=== PATIENT | female | born 1995 | race Caucasian/White ===

== ENCOUNTER 2019-01-10 02:25 | Inpatient (IN) | payer MEDICAID ==
[~2019-01-10] VITALS: Ht 154.9 cm; Wt 73.9 kg
[2019-01-10] MEDS ORDERED: DEXT 5%/LR + PITOCIN 20UNITS/L 1,000 ML IV SCH ×2 (03:08→14:36)
[2019-01-10] MEDS ORDERED: NALOXONE HCL 0.4 MG/ML 1ML VIAL IM PRN (03:15)
[2019-01-10] MEDS ORDERED: LIDOCAINE HCL 1% 20ML VIAL (Pyxis) INJ INFIL SCH (03:15)
[2019-01-10] MEDS ORDERED: METHYLERGONOVINE MALEATE 0.2 MG/ML IM PRN (03:15)
[2019-01-10] MEDS ORDERED: CARBOPROST TROMETHAMINE 250 MCG/ML AMPUL IM PRN (03:15)
[2019-01-10] MEDS ORDERED: BUTORPHANOL TARTRATE 2 MG/ML VIAL IV PRN (03:15)
[2019-01-10 03:44] LABS: BASOPHILS % 0.3 % (0.0-2.0); EOSINOPHILS % 0.5 % (0.0-5.0); HEMATOCRIT. 35.5 % (36.0-48.0); HEMOGLOBIN. 11.8 g/dL (12.0-16.0); MEAN CORPUSCULAR HEMOGLOBIN 27.1 pg (28.0-32.0); MEAN CORPUSCULAR VOLUME 81.5 fL (81.0-99.0); MEAN PLATELET VOLUME 9.8 fl (7.4-10.4); NEUTROPHILS % 73.2 % (40.0-76.0); PLATELET 148 x1000/uL (130-400); RED BLOOD CELL COUNT 4.36 mill/uL (4.2-5.4); RED CELL DISTRIBUTION WIDTH 13.2 % (11.6-14.6)
[2019-01-10 03:45] LABS: CLARITY URINE CLOUDY (CLEAR); COLOR URINE YELLOW (YELLOW); KETONES URINE NEGATIVE (NEGATIVE); LEUKOCYTE ESTERASE URINE 2+ (NEGATIVE); NITRITE URINE NEGATIVE (NEGATIVE); OCCULT BLOOD URINE 1+ (NEGATIVE); PROTEIN URINE NEGATIVE (NEGATIVE); SPECIFIC GRAVITY URINE 1.008 (1.005-1.030); UROBILINOGEN URINE 0.2 E.U./dL (0.2-1.0)
[2019-01-10 03:54] LABS: INR 0.9; PARTIAL THROMBOPLASTIN TIME 28.9 sec (23.4-31.0); PROTHROMBIN TIME 9.7 sec (9.6-11.0)
[2019-01-10] MEDS ORDERED: LACTATED RINGERS 1,000 ML IV SCH ×2 (04:00→14:00)
[2019-01-10 07:07] LABS: HEPATITIS B SURFACE ANTIGEN NEGATIVE
[2019-01-10] MEDS ORDERED: ONDANSETRON HCL 4MG/2ML INJ IV PRN (08:22)
[2019-01-10] MEDS ORDERED: DEXT 5%/LR + PITOCIN 20UNITS/L 1,000 ML IV ONE (13:23)
[2019-01-10] MEDS ORDERED: ACETAMINOPHEN WITH CODEINE 300/30MG TABLET PO PRN (14:45)
[2019-01-10] MEDS ORDERED: BENZOCAINE/LANOLIN/ALOE VERA SPRAY TOP PRN (14:45)
[2019-01-10] MEDS ORDERED: IBUPROFEN 400MG TABLET PO PRN (14:45)
[2019-01-10] MEDS ORDERED: IBUPROFEN 800MG TABLET PO PRN (14:45)
[2019-01-10] MEDS ORDERED: DIPHENHYDRAMINE 25MG CAPSULE PO PRN (14:45)
[2019-01-10] MEDS ORDERED: BISACODYL 10MG SUPP PR PRN (14:45)
[2019-01-10] MEDS ORDERED: INFLUENZA VIRUS VACCINE(AFLURIA) 0.5ML SYR IM ONE (14:45)
[2019-01-10] MEDS ORDERED: TETANUS, DIPHTHERIA, PERTUSSIS VAC/PF 0.5ML (>7YR OLD) IM ONE (14:45)
[2019-01-10] MEDS ORDERED: GLYCERIN/WITCH HAZEL LEAF MEDICATED PAD TOP PRN (14:45)
[2019-01-10 16:15] VITALS: BP 111/62
[2019-01-10 17:00] VITALS: BP 108/74
[2019-01-10 20:00] VITALS: BP 95/63
[2019-01-10 20:01] VITALS: BP 96/61
[2019-01-10] MEDS: DOCUSATE SODIUM 100MG CAPSULE PO SCH (23:14)
[2019-01-10 23:34] VITALS: BP 95/60
[2019-01-11 07:18] LABS: BASOPHILS % 0.3 % (0.0-2.0); EOSINOPHILS % 0.2 % (0.0-5.0); HEMATOCRIT. 34.1 % (36.0-48.0); HEMOGLOBIN. 11.2 g/dL (12.0-16.0); LYMPHOCYTES % 18.7 % (20.0-50.0); MEAN CORPUSCULAR HEMOGLOBIN 26.8 pg (28.0-32.0); MEAN CORPUSCULAR VOLUME 81.1 fL (81.0-99.0); MEAN PLATELET VOLUME 9.9 fl (7.4-10.4); MONOCYTES % 4.7 % (2.0-8.0); NEUTROPHILS % 76.1 % (40.0-76.0); PLATELET 145 x1000/uL (130-400); RED CELL DISTRIBUTION WIDTH 13.5 % (11.6-14.6)
[2019-01-11 09:00] VITALS: BP 100/57
[2019-01-11] MEDS: PRENATAL VIT/FE FUMARATE/FA TABLET PO SCH (09:13)
[2019-01-11] MEDS: FERROUS SULFATE 325MG TABLET PO SCH ×3 (09:13→17:59)
[2019-01-11 16:22] VITALS: BP 90/51
[2019-01-11 20:00] VITALS: BP 99/56
[2019-01-11] MEDS: DOCUSATE SODIUM 100MG CAPSULE PO SCH (21:31)
[2019-01-12 04:00] VITALS: BP 101/68
[2019-01-12 08:00] VITALS: BP 105/63
[2019-01-12] MEDS: PRENATAL VIT/FE FUMARATE/FA TABLET PO SCH (08:54)
[2019-01-12] MEDS: FERROUS SULFATE 325MG TABLET PO SCH (08:54)
== END 2019-01-12 11:00 | disposition home or self-care (01) | DRG 560 ==
LOC: 8 EST LDRP 02:25 → OBSVTOIN 02:25 → 8EST 16:15
PROVIDERS: ADMIT Specialist; ATTEND Specialist
PROC: 10E0XZZ Delivery of Products of Conception, External Approach (ICD-10-PCS; principal; 2019-01-10)
PROC: 0HQ9XZZ Repair Perineum Skin, External Approach (ICD-10-PCS; 2019-01-10)
DX: O76 Abnormality in fetal heart rate and rhythm complicating labor and delivery (principal); O99.354 Diseases of the nervous system complicating childbirth; O99.52 Diseases of the respiratory system complicating childbirth; D64.9 Anemia, unspecified; O70.0 First degree perineal laceration during delivery; G43.909 Migraine, unspecified, not intractable, without status migrainosus; J45.909 Unspecified asthma, uncomplicated; O99.02 Anemia complicating childbirth; Z3A.38 38 weeks gestation of pregnancy; Z37.0 Single live birth
CPT/HCPCS: 36415; 86592; 86762; 86850; 86900; 87340; G0378; J0595; J2405; J2590; J3490; J7120

== ENCOUNTER 2021-09-13 03:14 | Inpatient (IN) | payer MEDICAID, OTHER ==
[~2021-09-13] VITALS: Ht 157.5 cm; Wt 72.6 kg
[2021-09-13] MEDS ORDERED: CARBOPROST TROMETHAMINE 250 MCG/ML AMPUL IM PRN (04:45)
[2021-09-13] MEDS ORDERED: BUTORPHANOL TARTRATE 2 MG/ML VIAL IV PRN (04:45)
[2021-09-13] MEDS ORDERED: METHYLERGONOVINE MALEATE 0.2 MG/ML IM PRN ×3 (04:45→16:45)
[2021-09-13] MEDS ORDERED: DEXT 5%/LR + PITOCIN 20UNITS/L 1,000 ML IV SCH ×2 (04:45→16:45)
[2021-09-13] MEDS ORDERED: NALOXONE HCL 0.4 MG/ML 1ML VIAL IM PRN (04:45)
[2021-09-13] MEDS ORDERED: PREN1TAB78 MT (04:51)
[2021-09-13] MEDS: LACTATED RINGERS 1,000 ML IV SCH ×3 (04:56→08:13)
[2021-09-13] MEDS ORDERED: PENICILLIN G POTASSIUM 5 MMU in DEXT 5% WATER 100 ML IV SCH (05:00)
[2021-09-13] MEDS ORDERED: LIDOCAINE HCL 1% 20ML VIAL (Pyxis) INJ INFIL SCH (05:00)
[2021-09-13 05:34] LABS: CLARITY URINE CLEAR (CLEAR); COLOR URINE YELLOW (YELLOW); KETONES URINE 1+ (NEGATIVE); LEUKOCYTE ESTERASE URINE TRACE (NEGATIVE); NITRITE URINE NEGATIVE (NEGATIVE); OCCULT BLOOD URINE 1+ (NEGATIVE); PH URINE 6.5 (4.5-8.0); PROTEIN URINE NEGATIVE (NEGATIVE); SPECIFIC GRAVITY URINE 1.016 (1.005-1.030); UROBILINOGEN URINE 0.2 E.U./dL (0.2-1.0)
[2021-09-13 05:37] LABS: INR 0.9; PARTIAL THROMBOPLASTIN TIME 28.5 sec (23.4-31.0); PROTHROMBIN TIME 9.9 sec (9.6-11.0)
[2021-09-13 05:40] LABS: BASOPHILS % 0.2 % (0.0-2.0); EOSINOPHILS % 0.5 % (0.0-5.0); HEMOGLOBIN. 13.6 g/dL (12.0-16.0); LYMPHOCYTES % 27.6 % (20.0-50.0); MEAN CORPUSCULAR HEMOGLOBIN 30.1 pg (28.0-32.0); MEAN CORPUSCULAR VOLUME 88.2 fL (81.0-99.0); MEAN PLATELET VOLUME 11.7 fl (7.4-10.4); MONOCYTES % 5.5 % (2.0-8.0); NEUTROPHILS % 66.2 % (40.0-76.0); PLATELET 131 x1000/uL (130-400); RED BLOOD CELL COUNT 4.54 mill/uL (4.2-5.4); RED CELL DISTRIBUTION WIDTH 13.1 % (11.6-14.6)
[2021-09-13 06:01] LABS: HEPATITIS B SURFACE ANTIGEN NEGATIVE
[2021-09-13 06:03] LABS: *BARBITURATES SCREEN URINE NEGATIVE (NEGATIVE)
[2021-09-13 06:04] LABS: *AMPHETAMINES SCREEN URINE NEGATIVE (NEGATIVE); *BENZODIAZEPINES SCREEN URINE NEGATIVE (NEGATIVE); *COCAINE SCREEN URINE NEGATIVE (NEGATIVE); CANNABINOID URINE SCREEN NEGATIVE (NEGATIVE); METHADONE URINE SCREEN NEGATIVE (NEGATIVE); OPIATES URINE SCREEN NEGATIVE (NEGATIVE); PHENCYCLIDINE URINE SCREEN NEGATIVE (NEGATIVE)
[2021-09-13] MEDS: MAGNESIUM/ALUMINUM HYDROXIDE/SIMETHICONE 30ML UDC PO SCH ×2 (07:30→21:43)
[2021-09-13] MEDS: SIMETHICONE 80MG TABLET CHEW PO SCH ×2 (08:00→21:44)
[2021-09-13] MEDS ORDERED: PENICILLIN G POTASSIUM 2.5 MMU in DEXTROSE 5% WATER 50 ML IV SCH (09:00)
[2021-09-13 11:15] VITALS: BP 106/66
[2021-09-13 11:45] VITALS: BP 109/60
[2021-09-13] MEDS ORDERED: GLYCERIN/WITCH HAZEL LEAF MEDICATED PAD TOP PRN (16:45)
[2021-09-13] MEDS ORDERED: BENZOCAINE/LANOLIN/ALOE VERA SPRAY TOP PRN (16:45)
[2021-09-13] MEDS ORDERED: HEMORRHOIDAL SUPP PR PRN (16:45)
[2021-09-13] MEDS ORDERED: IBUPROFEN 400MG TABLET PO PRN (16:45)
[2021-09-13] MEDS ORDERED: BISACODYL 10MG SUPP PR PRN (16:45)
[2021-09-13] MEDS ORDERED: RHO(D) IMMUNE GLOBULIN 300 MCG/SYR IM PRN (16:45)
[2021-09-13] MEDS ORDERED: ACETAMINOPHEN WITH CODEINE 300/30MG TABLET PO PRN (16:45)
[2021-09-13] MEDS ORDERED: IBUPROFEN 800MG TABLET PO PRN (16:45)
[2021-09-13] MEDS ORDERED: LANOLIN OINT 7GM TUBE TOP PRN (16:45)
[2021-09-13] MEDS ORDERED: DOCUSATE SODIUM 100MG CAPSULE PO SCH (21:00)
[2021-09-13 22:00] VITALS: BP 102/67
[2021-09-14 04:13] VITALS: BP 107/69
[2021-09-14 06:11] LABS: BASOPHILS % 0.3 % (0.0-2.0); EOSINOPHILS % 0.5 % (0.0-5.0); HEMATOCRIT. 38.6 % (36.0-48.0); HEMOGLOBIN. 13.4 g/dL (12.0-16.0); LYMPHOCYTES % 21.5 % (20.0-50.0); MEAN CORPUSCULAR HEMOGLOBIN 30.9 pg (28.0-32.0); MEAN CORPUSCULAR VOLUME 88.7 fL (81.0-99.0); MEAN PLATELET VOLUME 11.1 fl (7.4-10.4); MONOCYTES % 4.9 % (2.0-8.0); NEUTROPHILS % 72.8 % (40.0-76.0); PLATELET 116 x1000/uL (130-400); RED BLOOD CELL COUNT 4.35 mill/uL (4.2-5.4)
[2021-09-14] MEDS ORDERED: FERROUS SULFATE 325MG TABLET PO SCH (07:30)
[2021-09-14] MEDS ORDERED: PRENATAL VIT/FE FUMARATE/FA TABLET PO SCH (09:00)
[2021-09-14] MEDS ORDERED: IBUP-2030 PO (10:38)
== END 2021-09-14 12:50 | disposition home or self-care (01) | DRG 560 ==
LOC: OBSVTOIN 03:14 → 8 EST LDRP 03:14 → 8EST 11:08
PROVIDERS: ADMIT Obstetrics & Gynecology; ATTEND Obstetrics & Gynecology
PROC: 10E0XZZ Delivery of Products of Conception, External Approach (ICD-10-PCS; principal; 2021-09-13)
PROC: 3E0R3BZ Introduction of Anesthetic Agent into Spinal Canal, Percutaneous Approach (ICD-10-PCS; 2021-09-13)
PROC: 00HU33Z Insertion of Infusion Device into Spinal Canal, Percutaneous Approach (ICD-10-PCS; 2021-09-13)
DX: O80 Encounter for full-term uncomplicated delivery (principal); Z37.0 Single live birth; Z20.822 Contact with and (suspected) exposure to COVID-19; Z3A.39 39 weeks gestation of pregnancy
CPT/HCPCS: 36415; 76805; 76818; 80305; 81003; 85025; 86592; 86703; 86762; 86850; 86900; 87340; 87426; 99281; J0595; J2540; J2590; J3490; J7060; J7120; A4315